=== PATIENT | male | born 1955 | race Caucasian/White ===

== ENCOUNTER 2019-06-16 19:35 | Emergency (ER) | payer OTHER ==
[~2019-06-16] VITALS: Ht 177.8 cm; Wt 83.0 kg
[2019-06-16 19:56] VITALS: Ht 177.8 cm; Wt 83.0 kg
[2019-06-16] MEDS ORDERED: PROPRANOLOL HCL20 MG PO (19:57)
[2019-06-16] MEDS ORDERED: COREG12.5 MG PO (19:58)
[2019-06-16] MEDS ORDERED: CLARITIN 10 MG10 MG PO (19:58)
[2019-06-16] MEDS ORDERED: SINGULAIR10 MG PO (19:59)
[2019-06-16] MEDS ORDERED: FAMOTIDINE10 MG PO (19:59)
[2019-06-16] MEDS ORDERED: TERBINAFINE HC250 MG PO (19:59)
[2019-06-16 20:32] LABS: BASOPHILS 0.2 % (0-2); EOSINOPHILS 3.5 % (0-7); HEMATOCRIT 46.7 % (42.0-54.0); IMMATURE GRANULOCYTES 0.4 % (0-5); LYMPHOCYTES 24.2 % (15-50); MCH 33.3 pg (26.0-34.0); MCHC 34.3 g/dL (31.0-37.0); MCV 97.3 fL (80.0-100.0); MEAN PLATELET VOLUME 9.3 fL (7.4-10.4); MONOCYTES 8.7 % (2-11); PLATELET COUNT 222 10x3/uL (130-400); RDW 12.9 % (11.5-14.5); WBC 8.4 10x3/uL (4.8-10.8)
[2019-06-16 20:40] LABS: BILIRUBIN NEGATIVE (NEGATIVE); GLUCOSE NEGATIVE (NEGATIVE); KETONE NEGATIVE (NEGATIVE); NITRITE NEGATIVE (NEGATIVE); UROBILINOGEN NORMAL (NORMAL); WHITE CELLS - URINE RARE /hpf (NEGATIVE)
[2019-06-16 20:59] LABS: CALC OSMOLALITY 275 mosm/kg (275-300); CALCIUM 8.5 mg/dL (8.5-10.1); CHLORIDE - SERUM 104 mmol/L (98-107); CREATININE - SERUM 0.7 mg/dL (0.6-1.3); GLUCOSE 89 mg/dL (74-106); POTASSIUM - SERUM 3.5 mmol/L (3.5-5.1); SODIUM 140 mmol/L (136-145); UREA NITROGEN 8 mg/dL (7-18); eGFR NON AFRICAN AMERICAN > 90 mL/min (90-120)
[2019-06-16 21:02] LABS: ALBUMIN 3.8 g/dL (3.4-5.0); ALKALINE PHOSPHATASE 104 U/L (30-120); ALT (SGPT) 28 U/L (10-68); BILIRUBIN - TOTAL 0.44 mg/dL (0.2-1.3); PROTEIN - SERUM 7.1 g/dL (6.4-8.2)
[2019-06-16] MEDS ORDERED: FLOMAX0.4 MG PO (21:15)
[2019-06-16 21:34] VITALS: BP 133/79
== END 2019-06-16 23:14 | disposition home or self-care (01) ==
LOC: D.ER 19:35
PROVIDERS: Family Medicine
DX: R31.9 Hematuria, unspecified (principal); R10.9 Unspecified abdominal pain; I10 Essential (primary) hypertension; Z72.0 Tobacco use; R35.8 Other polyuria

== ENCOUNTER 2019-08-25 08:40 | Emergency (ER) | payer OTHER ==
[~2019-08-25] VITALS: Ht 177.8 cm; Wt 79.5 kg
[~2019-08-25 08:40] MED LIST: CLARITIN 10 MG10 MG PO; COREG12.5 MG PO; FAMOTIDINE10 MG PO; FLOMAX0.4 MG PO; PROPRANOLOL HCL20 MG PO; SINGULAIR10 MG PO; TERBINAFINE HC250 MG PO
[2019-08-25 09:08] VITALS: Ht 177.8 cm; Wt 79.5 kg
[2019-08-25] MEDS ORDERED: LISINOPRIL10 MG PO (09:12)
[2019-08-25] MEDS ORDERED: NEURONTIN 300300 MG PO (09:12)
[2019-08-25] MEDS ORDERED: LISINOPRIL-HCT1 EAC4 PO (09:13)
[2019-08-25] MEDS ORDERED: PREDNISONE50 MG PO (10:23)
[2019-08-25] MEDS ORDERED: KEFLEX500 MG PO (10:23)
[2019-08-25] MEDS ORDERED: CLEOCIN HCL300 MG PO (10:23)
[2019-08-25 10:24] LABS: BASOPHILS 0.2 % (0-2); EOSINOPHILS 2.4 % (0-7); HEMATOCRIT 46.1 % (42.0-54.0); HEMOGLOBIN 16.3 g/dL (13.5-17.5); IMMATURE GRANULOCYTES 0.8 % (0-5); LYMPHOCYTES 8.8 % (15-50); MCH 32.6 pg (26.0-34.0); MCHC 35.4 g/dL (31.0-37.0); MCV 92.2 fL (80.0-100.0); MEAN PLATELET VOLUME 8.5 fL (7.4-10.4); MONOCYTES 8.4 % (2-11); NEUTROPHILS 79.4 % (40-80); PLATELET COUNT 253 10x3/uL (130-400); RDW 13.1 % (11.5-14.5)
[2019-08-25 10:31] LABS: CALC OSMOLALITY 254 mosm/kg (275-300); CARBON DIOXIDE 28.6 mmol/L (21.0-32.0); CHLORIDE - SERUM 94 mmol/L (98-107); GLUCOSE 96 mg/dL (74-106); SODIUM 127 mmol/L (136-145); UREA NITROGEN 13 mg/dL (7-18); eGFR NON AFRICAN AMERICAN 80 mL/min (90-120)
[2019-08-25 10:36] LABS: ALBUMIN 3.6 g/dL (3.4-5.0); ALKALINE PHOSPHATASE 97 U/L (30-120); ALT (SGPT) 26 U/L (10-68); BILIRUBIN - TOTAL 0.78 mg/dL (0.2-1.3); PROTEIN - SERUM 7.2 g/dL (6.4-8.2)
[2019-08-25 11:11] VITALS: BP 118/69
== END 2019-08-25 11:12 | disposition home or self-care (01) ==
LOC: D.ER 08:40
PROVIDERS: Family Medicine
DX: L25.9 Unspecified contact dermatitis, unspecified cause (principal); T25.422A Corrosion of unspecified degree of left foot, initial encounter; T25.421A Corrosion of unspecified degree of right foot, initial encounter; Y93.9 Activity, unspecified; Y92.9 Unspecified place or not applicable; T49.0X5A Adverse effect of local antifungal, anti-infective and anti-inflammatory drugs, initial encounter; I10 Essential (primary) hypertension